=== PATIENT | female | born 1950 | race Caucasian/White ===

== ENCOUNTER 2018-03-06 07:28 | Observation (INO) | payer OTHER ==
--- NOTE | 2018-03-05 11:23 | GHP ---
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 She has had chronic problems with her right knee, even beginning in her teenage years with patellofemora l tracking issues. She has tricompartment osteoarthritis of her right knee. She has tried numerous treatments through the years, including oral NSAID, hyaluronic acid injections, icing, physical thera py, and she has had a number of surgeries, including an open lateral release in 1979, and an arthrosc opy in 1985. She has pain, swelling, mechanical symptoms, limitation of her range of motion, gait ab normalities causing her to limp. She has elected to proceed now with a right total knee arthroplasty . PAST MEDICAL HISTORY: Remarkable for arthritis, depression, reflux, osteopenia, which is monitored b y Dr. Delgado Arrington. PAST SURGICAL HISTORY: Her surgeries, include the 2 procedures as described for her right knee, as w ell as a surgery. CURRENT MEDICATIONS: Include Dexilant 30 mg capsules daily, estradiol, progesterone. REVIEW OF SYSTEMS: Positive from the GI standpoint for reflux; from the musculoskeletal standpoint f or arthritis and osteopenia. PHYSICAL EXAM: GENERAL: The patient is a well-developed, well-nourished female in no apparent distr ess. HEAD/NECK: Normocephalic, atraumatic. CHEST: Clear. CARDIOVASCULAR: Regular rate and rhyth m. ABDOMEN: Soft. NEUROLOGIC: She is alert and oriented x3. EXTREMITIES: Examination of the rig ht knee shows an effusion. She has 130 degrees of flexion, a couple of degrees of flexion contractur e. She is tender along the joint lines and around the patellar surfaces. There is evidence of her p revious lateral release. Ligamentously, the knee appears stable. IMPRESSIONS: Right knee tricompartment osteoarthritis. PLAN: Right total knee arthroplasty. Benefits and risks of surgery have been reviewed. She underst ands that the risks, include infection, damage to blood vessel or nerve, failure or loosening of comp onents and need for revision. She understands that there is a risk of blood clots in the leg or lung s, bleeding and need for transfusion, and the rigorous nature of the rehabilitation has been reviewed . She has signed a consent form and wishes to proceed with her right total knee arthroplasty. /[id number]/MODL
[~2018-03-06 07:28] MED LIST: POVIDONE-IODINE 20 ML in SODIUM CL IRRIG SOLUTION 500 ML IRR ONE; ROPIVACAINE 0.2% 80 MG, EPINEPHrine 0.2 MG, KETOROLAC TROMETHAMINE 30 MG in SYRINGE 0 ML IU ONE; TRANEXAMIC ACID 1,000 MG in NS 100 ML IV ONE
[2018-03-06] MEDS ORDERED: DEXAMETHASONE 4 MG/ML VIAL IVP ONE (07:46)
[2018-03-06] MEDS ORDERED: ONDANSETRON 4 MG/2 ML VIAL IVP ONE (07:46)
[2018-03-06] MEDS ORDERED: FAMOTIDINE 20 MG TAB PO ONE (07:46)
[2018-03-06] MEDS ORDERED: LIDOCAINE 1% 2 ML INJ ID PRN (07:46)
[2018-03-06] MEDS ORDERED: GABAPENTIN 300 MG CAP PO ONE (07:46)
[2018-03-06] MEDS ORDERED: LR 1,000 ML IV ONE (07:46)
[2018-03-06] MEDS ORDERED: ACETAMINOPHEN 325 MG TAB PO ONE (07:46)
[2018-03-06] MEDS ORDERED: ceFAZolin 2 GM/DEXTROSE 100 ML IV ONE (07:46)
[2018-03-06] MEDS ORDERED: ROPIVACAINE HCL 150 MG/30 ML INJ ONE (08:33)
[2018-03-06] MEDS ORDERED: LIDOCAINE 2% 5 ML SDV ONE (08:33)
[2018-03-06] MEDS ORDERED: BUPIVACAINE/DEXTROSE 7.5MG/ML 2 ML SPINAL AMP SP ONE (08:33)
[2018-03-06] MEDS ORDERED: fentaNYL 100 MCG/2 ML INJ ONE ×2 (08:34→12:37)
[2018-03-06] MEDS ORDERED: PROPOFOL/EMULSION 500 MG/50 ML BOTTLE IV ONE (08:34)
[2018-03-06] MEDS ORDERED: ceFAZolin 1 GM/5 ML SYR ONE (08:44)
--- NOTE | 2018-03-06 09:52 | PDANEPAE ---
ANE History of Present Illness knee pain and djd, here for R TKA ANE Past Medical History - Cardiovascular History Hx Hypertension: No Hx Arrhythmias: No Hx Chest Pain: No Hx Coronary Artery / Peripheral Vascular Disease: No Hx CHF / Valvular Disease: No Hx Palpitations: No Cardiovascular History Comment: BP TENDS TO RUN LOW - Pulmonary History Hx COPD: No Hx Asthma/Reactive Airway Disease: No Hx Recent Upper Respiratory Infection: No Hx Oxygen in Use at Home: No Hx Sleep Apnea: No Sleep Apnea Screening Result - Last Documented: Negative - Neurologic History Hx Cerebrovascular Accident: No Hx Seizures: No Hx Dementia: No - Endocrine History Hx Diabetes: No - Renal History Hx Renal Disorders: No - Liver History Hx Hepatic Disorders: No - Neurological & Psychiatric Hx Hx Neurological and Psychiatric Disorders: No - Cancer History Hx Cancer: Yes Cancer History Comment: SKIN - Congenital Disorder History Hx Congenital Disorders: No - GI History Hx Gastrointestinal Disorders: Yes Gastrointestinal History Comment: REFLUX - Other Health History Other Health History: OSTEOARTHRITIS - Chronic Pain History Chronic Pain: Yes (RT KNEE) - Surgical History Prior Surgeries: RT FOREHEAD MOH'S PROCEDURE. TONSILLECTOMY. RT CARPAL TUNNEL. REMVL ADENOMA JAW AREA. HYSTERECTOMY/APPENDECTOMY. RT KNEE SCOPE X2. BREAST BIOPSIES ANE Review of Systems Review of Systems: - Exercise capacity METS (RN): 5 METS ANE Patient History - Allergies Allergies/Adverse Reactions: Penicillins Allergy (Verified 02/10/18 10:27) Rash Sulfa (Sulfonamide Antibiotics) Allergy (Verified 02/10/18 10:27) Rash - Home Medications Home Medications: Dexlansoprazole [Dexilant] 30 mg PO DAILY 02/10/18 [Last Taken 03/06/18 06:15] Estradiol [Vivelle-Dot 0.0375MG (*)] 0.0375 mg TD SuWe@0800 02/10/18 [Last Taken 03/04/18] Multivitamins [Multivitamin (*)] 1 each PO DAILY 02/10/18 [Last Taken 1 Week Ago ~02/27/18] Progesterone/Testosterone Crm 1 kasey TP SUWE 02/10/18 [Last Taken 03/04/18] buPROPion XL [Wellbutrin Xl] 300 mg PO DAILY 02/10/18 [Last Taken 03/06/18 06:15 ] - NPO status NPO Since - Liquids (Date): 01/07/19 NPO Since - Liquids (Time): 06:30 NPO Since - Solids (Date): 03/05/18 NPO Since - Solids (Time): 18:30 - Smoking Hx Smoking Status: Never smoked ANE Labs/Vital Signs - Vital Signs Blood Pressure: 109/79 Heart Rate: 66 Respiratory Rate: 16 O2 Sat (%): 98 Height: 172.72 cm Weight: 61.235 kg ANE Physical Exam - Airway Neck exam: FROM Mallampati Score: Class 1 Mouth exam: normal dental/mouth exam - Pulmonary Pulmonary: no respiratory distress, no rales or rhonchi - Cardiovascular Cardiovascular: regular rate and rhythym - ASA Status ASA Status: II ANE Anesthesia Plan Anesthesia Plan: GA with mask, spinal Regional Anesthesia: single shot NB (has hx PONV/motion sickness, scop patch ordered) Total IV Anesthesia: Yes
[2018-03-06] MEDS ORDERED: MIDAZOLAM 2 MG/2 ML VIAL IVP ONE (09:53)
[2018-03-06] MEDS ORDERED: MIDAZOLAM 2 MG/2 ML VIAL ONE (09:55)
[2018-03-06] MEDS ORDERED: SCOPOLAMINE HYDROBROMIDE 1 MG/3 DAYS PATCH TD ONE (09:55)
--- NOTE | 2018-03-06 09:55 | PDHPUP ---
History & Physical Update H&P update statement: This history and physical update is based on an assessment of the patient which was completed after admission or registration (within 24 hours), but prior to the surgery/procedure. no change H&P update: no change in patient's condition since H&P completed (no change)
[2018-03-06] MEDS ORDERED: SCOPOLAMINE HYDROBROMIDE 1 MG/3 DAYS PATCH TD SCH (10:00)
[2018-03-06] MEDS ORDERED: HYDROmorphONE/DILAUDID 2 MG/ML INJ IVP PRN (11:01)
[2018-03-06] MEDS ORDERED: NALOXONE HCL 0.4 MG/ML INJ IVP PRN (11:01)
[2018-03-06] MEDS ORDERED: MEPERIDINE 25 MG/0.5 ML AMP IVP PRN (11:01)
[2018-03-06] MEDS ORDERED: ACETAMINOPHEN 500 MG TAB PO PRN (11:01)
[2018-03-06] MEDS ORDERED: DIAZEPAM 5 MG/ML 1 ML SYR IVP PRN (11:01)
[2018-03-06] MEDS ORDERED: PROMETHAZINE HCL 25 MG/ML INJ IVP PRN ×2 (11:01→12:13)
[2018-03-06] MEDS ORDERED: oxyCODONE IR 5 MG TAB PO PRN (11:01)
[2018-03-06] MEDS ORDERED: PROPOFOL 200 MG/20 ML VIAL ONE (11:15)
[2018-03-06] MEDS ORDERED: METOCLOPRAMIDE 10 MG/2 ML VIAL IVP PRN (12:13)
[2018-03-06] MEDS ORDERED: MAGNESIUM HYDROXIDE 30 ML UDCUP PO PRN (12:13)
[2018-03-06] MEDS ORDERED: TEMAZEPAM 15 MG CAP PO PRN (12:13)
[2018-03-06] MEDS ORDERED: PROMETHAZINE HCL 25 MG SUPPR PR PRN (12:13)
[2018-03-06] MEDS ORDERED: ONDANSETRON DISINTEGRATING 4 MG TAB PO PRN (12:13)
[2018-03-06] MEDS ORDERED: ONDANSETRON 4 MG/2 ML VIAL IVP PRN (12:13)
[2018-03-06] MEDS ORDERED: diphenhydrAMINE 25 MG CAP PO PRN (12:13)
[2018-03-06] MEDS ORDERED: BISACODYL 10 MG SUPP PR PRN (12:13)
[2018-03-06] MEDS ORDERED: POLYETHYLENE GLYCOL 3350 17 GM PKT PO PRN (12:13)
[2018-03-06] MEDS ORDERED: DIPHENOXYLATE/ATROPINE LOMOTIL 1 TAB PO PRN (12:13)
[2018-03-06] MEDS ORDERED: LACTULOSE 20 GM/30 ML UDCUP PO PRN (12:13)
[2018-03-06] MEDS ORDERED: KETOROLAC 15 MG/1 ML SDV IVP ONE (12:18)
[2018-03-06] MEDS ORDERED: LR 1,000 ML IV SCH (12:30)
[2018-03-06] MEDS ORDERED: KETOROLAC 15 MG/1 ML SDV ONE (12:37)
[2018-03-06] MEDS: fentaNYL 100 MCG/2 ML INJ IVP PRN ×2 (12:42→12:59)
--- NOTE | 2018-03-06 12:51 | GOP ---
DATE OF OPERATION: 03/06/2018 SURGEON: Brandon Natarajan MD TRANSPORTATION CLERK: ANNY Rodriguez LSA. ANESTHESIOLOGIST: Elvira Arredondo DO. PREOPERATIVE DIAGNOSIS: Right knee osteoarthritis. POSTOPERATIVE DIAGNOSIS: Right knee osteoarthritis. PROCEDURE PERFORMED: Right total knee arthroplasty. FINDINGS: SPECIMENS: Include excised bone. ESTIMATED BLOOD LOSS: Minimal. INDICATIONS: Montserrat is a 67-year-old female who presents with history, exam and x-rays all consis tent with severe right knee osteoarthritis, total knee is planned. DESCRIPTION OF PROCEDURE: The patient was taken to the operating room, while seated on the OR table, underwent a spinal anesthetic. She was placed supine. She received preoperative antibiotic as well as tranexamic acid. A tourniquet was placed high on the right thigh and the right leg was prepped a nd draped with chlorhexidine free in the usual fashion. The limb was elevated, exsanguinated, and th e tourniquet inflated to 275 mmHg. I made a longitudinal incision in the midline. She had a previou s long arcing arthrotomy incision that went quite far medial and this was an old incision and I made my incision a little bit lateral of midline to give it a little bit more space, the tissue surroundin g the old scar was in good condition, but the previous incision would not be very amenable to the carine gical dissection for a total knee, so I did add a new incision just lateral of midline in a straight line. Dissection was carried down through subcutaneous tissue. I used a medial parapatellar arthrot patti. Patella was inverted. I measured its thickness. I removed 9 mm of cartilage and bone to accom modate the implant and the patella was sized at a 35. I drilled peg holes for the implant. The tria l was a good fit and restored the thickness of the patella. The patella was inverted, the knee was f lexed and I drilled a pilot plant operator hole in the distal femur for an intramedullary alignment jig. No flexion contracture, so I used a neutral cut in 5 degrees of valgus. I sized the femur between a 5 and 6, a nd downsized to the 5. I moved it bit anterior to avoid notching. I completed the anterior, posteri or and camphor cuts. I also included the notch cuts for this bi-cruciate stabilized knee, the femora l trial component was a good fit. On the tibia I used extramedullary device dialing in the rotation posterior slope, made a perpendicular cut of correct depth for the implants. I sized the surface to a 4 and I dialed in the rotation and completed the tibial prep. All the components were removed, all the surfaces were jet lavaged with antibiotic irrigation. All components were cemented. The femur size 5, tibia size 4 and the patella a 35. When the cemented had hardened, I did trial reductions. I found that an 11 mm articular crosslink poly tray allowed excellent extension and appropriate ligam ent stability. The tray was engaged in the tibial component. The tourniquet was let down at [address]. Antibiotic irrigation was used with Betadine solution and then saline irrigation with antibioti cs. The arthrotomy was closed with interrupted [id number] sutures of 0 [place], subcutaneous tissue with 2-0 Monocryl, and the skin with a running subcuticular Quill locking suture. The wound w as then Steri-Stripped and I placed 4x4s, sterile Webril, a ALEJO stocking and an Dwain wrap. There were no complications. DRAINS: No drains. COUNTS: All counts were correct and the patient was taken in stable condition. My medical or surgical instrument maker, Jamal Zacarias, was a medical necessity for this case. SUMMARY OF COMPONENTS: This is a [employer] knee, bi-cruciate stabilized Oxinium femur crosslink polyethylene tray. Femur size 5, tibia size 4, patella 35, and the articular tray is 11 m m thick. /[id number]/MODL
[2018-03-06] MEDS ORDERED: ceFAZolin 2 GM/DEXTROSE 100 ML IV SCH (14:00)
[2018-03-06] MEDS: CYCLOBENZAPRINE 10 MG TAB PO PRN ×2 (14:55→23:06)
--- NOTE | 2018-03-06 15:11 | POSTANESTH ---
Post Anesthetic Evaluation Cardiovascular Status: Normal, Stable Respiratory Status: Normal, Stable Level of Consciousness/Mental Status: Can Participate in Eval Pain Control: Adequate, Prn Tx Ordered Nausea/Vomiting Control: Adequate, Prn Tx Ordered Complications Possibly Related to Anesthesia: None Noted (moving bilateral LE ad no issues or questions)
--- NOTE | 2018-03-06 16:03 | ASMTCMCOM ---
CM Note CM Note Notes: Patient is s/p R TKA today. She is doing well. She plans to return home w her tomorrow. She has an outpatient PT in place. No other d/c needs identified. Current CM Discharge plan: home independent Date Signed: 03/06/2018 04:03 PM Electronically Signed By:Ariadna Camilo RN
[2018-03-06] MEDS: ACETAMINOPHEN 325 MG TAB PO SCH ×2 (17:59→23:05)
[2018-03-06] MEDS: ceFAZolin 2 GM/DEXTROSE 100 ML IV SCH (18:35)
[2018-03-06] MEDS: ASPIRIN 81 MG CHEWABLE TAB PO SCH (20:34)
[2018-03-06] MEDS: FAMOTIDINE 20 MG TAB PO SCH (20:34)
[2018-03-06] MEDS: SENNOSIDES/DOCUSATE SODIUM TAB PO SCH (20:34)
[2018-03-07] MEDS: ceFAZolin 2 GM/DEXTROSE 100 ML IV SCH (01:27)
[2018-03-07] MEDS: oxyCODONE IR 5 MG TAB PO PRN ×2 (03:23→12:31)
[2018-03-07] MEDS: ACETAMINOPHEN 325 MG TAB PO SCH ×2 (05:51→12:30)
[2018-03-07 07:34] VITALS: BP 99/51
--- NOTE | 2018-03-07 08:44 | SOAPPROG ---
SOAP Progress Note Assessment/Plan: Assessment: 03/07/18 POD#1 R TKA, pain controlled,Hct 32, xray fine Plan: 03/07/18 08:41 PT/OT then home, oxy,tyl,celebrex, asa, out patient PT Objective: Vital Signs Temp Pulse Resp BP Pulse Ox 36.6 C 66 16 99/51 L 97 03/07/18 07:34 03/07/18 07:34 03/07/18 07:34 03/07/18 07:34 03/07/18 07:34 Laboratory Results 03/07/18 05:15 03/06/18 03/07/18 03/08/18 05:59 05:59 05:59 Intake Total 3560 Output Total 2750 400 Balance 810 -400 ICD10 Worksheet Patient Problems: Problems Problem Status Onset Osteoarthritis of right knee Acute - ICD10 Problem Qualifiers (1) Osteoarthritis of right knee
[2018-03-07] MEDS: ASPIRIN 81 MG CHEWABLE TAB PO SCH (08:51)
[2018-03-07] MEDS: SENNOSIDES/DOCUSATE SODIUM TAB PO SCH (08:52)
[2018-03-07] MEDS: FAMOTIDINE 20 MG TAB PO SCH (08:53)
[2018-03-07] MEDS ORDERED: MULTIVITAMINS 1 EACH TAB PO SCH (09:00)
[2018-03-07] MEDS ORDERED: buPROPion XL 150 MG TAB PO SCH (09:00)
[2018-03-07] MEDS ORDERED: PANTOPRAZOLE SODIUM 40 MG TAB PO SCH (09:00)
[2018-03-07] MEDS: CYCLOBENZAPRINE 10 MG TAB PO PRN (09:07)
--- NOTE | 2018-03-07 12:30 | ASMTLACE ---
FL[facility]O Length of stay for Answers: 2 days current admission Acuity / Level of Answers: No Care: Did the patient have an inpatient admission? # of Emergency department Answers: 0 visits in the last 6 months Social determinants Answers: Mental health diagnosis (anxiety, depression, pers onality disorders, etc.) Score: 5 Date Signed: 03/07/2018 12:29 PM Electronically Signed By:CRISTIN Bill
--- NOTE | 2018-03-07 16:06 | ASMTCMCOM ---
CM Note CM Note Notes: Pt had planned OA of R knee, PT rec home/outpatient. Pt resides with and dghtr flying in to support recovery. No CM d/c needs identified. Date Signed: 03/07/2018 04:06 PM Electronically Signed By:CRISTIN Bill
[2018-03-08] MEDS ORDERED: ESTRADIOL VIVELLE 0.0375 MG PATCH TD SCH (08:00)
[2018-03-08] MEDS ORDERED: PROGESTERONE TP SCH (12:22)
[2018-03-08] MEDS ORDERED: TESTOSTERONE TP SCH (12:22)
[2018-03-09] MEDS ORDERED: PATCH REMOVAL 1 EA PATCH TD SCH (09:53)
== END 2018-03-07 13:04 | disposition home or self-care (01) ==
LOC: F3N 07:28 → INTOOBSV 07:28 → F3N 13:35
PROVIDERS: ADMIT Orthopaedic Surgery; ATTEND Orthopaedic Surgery
PROC: 0SRC069 Replacement of Right Knee Joint with Oxidized Zirconium on Polyethylene Synthetic Substitute, Cemented, Open Approach (ICD-10-PCS; principal; 2018-03-06 09:45)
DX: M17.11 Unilateral primary osteoarthritis, right knee (principal); F32.9 Major depressive disorder, single episode, unspecified; K21.9 Gastro-esophageal reflux disease without esophagitis
CPT/HCPCS: 27447; 73560; 88311; 97116; 97161; 97165; 97530; C1713; C1776; J0171; J0690; J1100; J1885; J2250; J2405; J2704; J2795; J3010

== ENCOUNTER → 2018-03-09 | Outpatient (CLI) | payer OTHER | LOC: FIMAGING 14:18 | PROVIDERS: ATTEND Orthopaedic Surgery | DX: M25.561 Pain in right knee (principal); M79.89 Other specified soft tissue disorders; Z96.651 Presence of right artificial knee joint ==